=== PATIENT | male | born 1970 | race Caucasian/White ===

== ENCOUNTER 2022-12-07 06:48 | Emergency (ER) | payer MEDICAID ==
[~2022-12-07] VITALS: Ht 177.8 cm; Wt 102.1 kg
[2022-12-07 06:50] VITALS: BP_SYST 156
[2022-12-07] MEDS ORDERED: FLUT16SP16 NS (07:24)
[2022-12-07 07:32] VITALS: BP_SYST 156
== END 2022-12-07 07:31 | disposition home or self-care (01) ==
LOC: SED 06:48
DX: R22.0 Localized swelling, mass and lump, head (principal); E11.9 Type 2 diabetes mellitus without complications; Z79.899 Other long term (current) drug therapy
CPT/HCPCS: 99283